=== PATIENT | female | born 2000 | race Caucasian/White ===

== ENCOUNTER 2021-10-12 16:30 | Emergency (ER) | payer MEDICAID, SELFPAY ==
[2021-10-12 16:52] VITALS: BP 142/62; PULSE 67; RESP 18; TEMP 37.2; O2SAT 98; BMI 34.2
--- NOTE | 2021-10-12 17:33 | HMH.EDUTC ---
[facility] [place] Disposition Clinical Impression: Vertigo Otitis media Qualifiers: Otitis media type: suppurative Chronicity: acute Laterality: bilateral Recurrence: non-recurrent Spontaneous tympanic membrane rupture: without spontaneous rupture Qualified Code(s): H66.003 - Acute suppurative otitis media without spontaneous rupture of ear drum, bilateral Disposition: Home, Self-Care Condition on Discharge: Good Instructions: DI for Vertigo Additional Instructions: Drink plenty of fluids. Take tylenol or ibuprofen for pain or fever. Take the medications as directed. Follow up with your regular doctor. GO TO THE ER FOR ANY WORSENING SYMPTOMS The meclizine (antivert) might help for your dizziness. It will make you drowsy, so don't drive or operate machinery after taking it. Prescriptions: Meclizine HCl [Meclizine 25mg Tab] 25 mg PO Q6HP PRN #30 tab PRN Reason: Dizziness Transmission Status: Received by [email or web address] #[id number] Pseudoephedrine HCl 30 mg PO Q6HP PRN #30 tab PRN Reason: Congestion Transmission Status: Received by [email or web address] #[id number] Azithromycin [Z-Eliceo 250mg Tab*] 250 mg PO UD DOSE PK #6 tab Transmission Status: Received by [email or web address] #[id number] Referrals: Provider,Referral, MD [Primary Care Provider] - Forms: Work/School Release Time of Disposition: 17:49 Medical Decision Making - Medical Records Medical records reviewed: No: I reviewed the patient's medical records. - Meng Inquiry Pt receiving controlled substance: No Vital Signs: 10/12/21 16:52 10/12/21 17:53 Temperature 98.9 F 98.9 F Temperature Source Oral Pulse Rate 67 Pulse Rate [Left] 67 Respiratory Rate 18 18 Blood Pressure 142/62 H Blood Pressure [Right Arm] 142/62 H Blood Pressure Mean [Right Arm] 88 02 Sat by Pulse Oximetry 98 Orders (Tests/Meds): ORDERS Category Date Time Status Covid-19 Nasal PCR ([facility]) Routine Lab 10/12/21 17:45 Received [facility] [place] HPI - General Stated complaint: ear pain Time Seen by Provider: 10/12/21 17:33 Mode of Arrival: Ambulatory Source of Information: Patient Limitations: No Limitations Description of Symptoms (Recalled from Triage Doc. by RN): pt c/o dizziness, weakness, TROY, ears popping, and the room spinning. ongoing since last night. HEENT Symptoms (Recalled from RN notes): Yes (ears popping and TROY) Resp Symptoms (Recalled from RN notes): No Skin Symptoms (Recalled from RN notes): No MS Symptoms (Recalled from RN notes): No Functional Status (Recalled from RN notes): wnl - History of Present Illness Provider Complaint: She states that since last night she has had bilateral ear pain and pressure. She also has had intermittent dizziness and a head ache. She denies any chest congestion or cough, but she has had some sinus drainage. She has been fully vaccinated against covid-19. - Related Data Previous Rx's Medication Instructions Recorded Azithromycin [Z-Eliceo 250mg Tab*] 250 mg PO UD DOSE PK #6 tab 10/12/21 Meclizine HCl [Meclizine 25mg Tab] 25 mg PO Q6HP PRN #30 tab 10/12/21 Pseudoephedrine HCl 30 mg PO Q6HP PRN #30 tab 10/12/21 Allergies Allergy/AdvReac Type Severity Reaction Status Date / Time No Known Allergies Allergy Verified 10/19/19 15:07 - Worker's Comp Is this a Worker's Comp case?: No [facility] History - Hepatitis A Screen Drug use history?: No High risk sexual behaviors?: No History of sexually transmitted infection?: No Currently employed?: No Childcare worker?: No Do you have indoor plumbing?: Yes Do you have electricity?: Yes Attestation statement:: This patient has been screened for Hepatitis A risk factors. I have reviewed the patient's past medical history: Yes ROS Obtained: Yes All systems reviewed & no additional complaints - Constitutional Constitutional: Denies body ache, Denies chills, Denies fever(s), Denies poor appetite, Denies malaise - Eyes Eyes: Denies eye discharge - ENT Ears
[2021-10-12 17:53] VITALS: BP 142/62; PULSE 67; RESP 18; TEMP 37.2
== END 2021-10-12 18:00 | disposition home or self-care (01) ==
PROVIDERS: Emergency Provider Nurse Practitioner Family
DX: H66.003 Acute suppurative otitis media without spontaneous rupture of ear drum, bilateral (principal); R42 Dizziness and giddiness
CPT/HCPCS: 99202; C9803; G0463; U0003; U0005